=== PATIENT | female | born 1965 | race Caucasian/White ===

== ENCOUNTER → 2017-01-11 | Outpatient (CLI) | payer BC ==
--- NOTE | 2017-01-13 09:39 | KCIC ---
DATE: 01/11/2017 EXAM: MAMMO ROSITA SCREENING BILATERAL HISTORY: Routine screening COMPARISON: 01/16/2016 The breast parenchyma is heterogeneously dense, which could reduce sensitivity of mammography. Breast parenchyma level C. FINDINGS: 2-D and 3-D tomosynthesis imaging was performed in CC and MLO projections. There is a tiny 3 mm nodule located at approximately the 3:00 location in the left breast, best seen on CC tomogram #31 and oblique tomogram image #34. It is not clearly visualized on the current or old 2-D images due to overlying fibroglandular tissue. It is therefore not clear whether this is truly a new nodule. No other unusual breast densities are seen. Benign-appearing lymph node type densities are present in the axillary regions. A couple benign type calcifications are noted. No suspicious microcalcifications are seen. IMPRESSION: 1. Tiny breast left lateral breast nodule as described above. Sonographic evaluation is suggested. 2. Stable right mammograms. BI-RADS CATEGORY: 0 INCOMPLETE: NEEDS ADDITIONAL IMAGING EVALUATION AND/OR PRIOR MAMMOGRAMS FOR COMPARISON. RECOMMENDED FOLLOW-UP: ADD ADDITIONAL IMAGING PQRS compliance statement: Patient information was entered into a reminder system with a target due date for the next mammogram. Mammography is a sensitive method for finding small breast cancers, but it does not detect them all and is not a substitute for careful clinical examination. A negative mammogram does not negate a clinically suspicious finding and should not result in delay in biopsying a clinically suspicious abnormality. "Our facility is accredited by the [employer] Mammography Program."
== END | disposition home or self-care (01) ==
LOC: KCIC MAMMO 09:45
PROVIDERS: ATTEND Family Medicine
DX: Z12.31 Encounter for screening mammogram for malignant neoplasm of breast (principal)
CPT/HCPCS: 77063; G0202; 77067

== ENCOUNTER → 2017-01-26 | Outpatient (CLI) | payer BC ==
--- NOTE | 2017-01-26 13:33 | RAD ---
Left breast ultrasound [id number] Indication: Abnormal mammogram with mass in the upper outer left breast. Comparison: Prior mammograms from 01/11/2017, 01/16/2016 at 01/14/2015 Technique: Sonographic evaluation of the left breast was performed at the 3:30 position, 12:00, 1:00, 2:00, 3:00, 4:00, 5:00 and 6:00 position of the left breast 6 cm from the nipple. Findings: No suspicious medical stations, masses or areas of architectural distortion are identified in the left breast. There is a hyperechoic mass measuring 4 x 5 x 3 mm which does not correspond to the area of the circumscribed mass in the upper outer left breast on prior mammogram. This finding is favored to represent a lipoma. Since no mammographic correlate for circumscribed mass is identified, recommend follow-up mammogram and ultrasound in 6 months. Impression: Probably benign findings in the left breast. Recommend 6 month follow-up targeted ultrasound and mammogram for circumscribed mass in the upper outer left breast, 6 cm from the nipple. BI-RADS 3: Probably benign findings. Recommendations: Recommend 6 month follow-up imaging to include ultrasound and mammogram.
== END | disposition home or self-care (01) ==
LOC: KCIC US 12:18
PROVIDERS: ATTEND Family Medicine
DX: N63.20 Unspecified lump in the left breast, unspecified quadrant (principal); N63.21 Unspecified lump in the left breast, upper outer quadrant
CPT/HCPCS: 76641

== ENCOUNTER → 2017-07-27 | Outpatient (CLI) | payer BC | END | disposition home or self-care (01) | LOC: KCIC MAMMO 12:14 | DX: D48.62 Neoplasm of uncertain behavior of left breast (principal); N63.21 Unspecified lump in the left breast, upper outer quadrant | CPT/HCPCS: 76641; 77065; G0279 ==

== ENCOUNTER → 2018-01-27 | Outpatient (CLI) | payer BC ==
--- NOTE | 2018-01-27 14:53 | KCIC ---
DATE: 01/27/2018 EXAM: MAMMO ROSITA DIAG BILAT HISTORY: 6 month follow-up, previous breast nodule COMPARISON: 07/27/2017, 01/11/2017 This study was interpreted with the benefit of Computerized Aided Detection (CAD). Breast Density: HETERO The breast parenchyma is heterogenously dense, which could reduce sensitivity of mammography. Breast parenchyma level C. FINDINGS: 2-D and 3-D tomosynthesis imaging was performed in CC and MLO projections. No new or enlarging breast densities are seen. A tiny smooth nodule seen laterally in the left breast on the 01/11/2017 study is no longer visible. Benign type calcifications are present. No suspicious microcalcifications have developed. Left breast ultrasound, 01/27/2018: A targeted ultrasound exam of the left breast was obtained at the 3:30 location or a small hyperechoic nodule has been seen on previous studies. A 2 mm small hypermetabolic focus is again identified at this location, approximate 6 cm from the nipple. It is unchanged in size and configuration. A lipoma is most likely. IMPRESSION: 1. Stable mammograms without evidence of malignancy. 2. Unchanged tiny hyperechoic left breast nodule, likely a lipoma. 3. Follow-up left breast ultrasound in 6 months and bilateral mammography at one year is suggested. BI-RADS CATEGORY: 3 PROBABLY BENIGN FINDING(S)-SHORT INTERVAL FOLLOW-UP SUGGESTED RECOMMENDED FOLLOW-UP: 6M 6 MONTH FOLLOW-UP PQRS compliance statement: Patient information was entered into a reminder system with a target due date for the next mammogram. Mammography is a sensitive method for finding small breast cancers, but it does not detect them all and is not a substitute for careful clinical examination. A negative mammogram does not negate a clinically suspicious finding and should not result in delay in biopsying a clinically suspicious abnormality. "Our facility is accredited by the [employer] Mammography [employer]."
== END | disposition home or self-care (01) ==
LOC: KCIC MAMMO 12:48
PROVIDERS: ATTEND Family Medicine
DX: D48.62 Neoplasm of uncertain behavior of left breast (principal)
CPT/HCPCS: 76641; 77066; G0279; 77062

== ENCOUNTER → 2018-07-27 | Outpatient (CLI) | payer BC ==
--- NOTE | 2018-07-27 13:31 | KCIC ---
Left breast ultrasound: Reason for examination: Follow-up nodule. Comparison is made to previous studies dated 01/27/2018 and 07/27/2017. Ultrasound examination was performed in the area of previous concern and at the left axilla. In the 3:30 position 6 cm from the nipple, there continues to be hyperechoic lesion measuring approximately 4.4 mm in greatest dimension consistent with a lipoma. No other cystic or solid lesions are seen. No abnormal appearing lymph nodes are seen in the axilla. IMPRESSION: Hyperechoic lesion consistent with a lipoma at the 3:30 position. No suspicious abnormalities are seen. Recommend routine mammographic follow-up. BI-RADS Category 2: Benign. "Our facility is accredited by the [employer] Mammography [employer]." This patient's information has been entered into a reminder system for the patient to be notified with the results of her examination and a target date for the next mammogram. Electronically signed by: Nayeli Fernandez MD (07/27/2018 1:28 PM) [id number]
== END | disposition home or self-care (01) ==
LOC: KCIC US 12:51
PROVIDERS: ATTEND Family Medicine
DX: D49.3 Neoplasm of unspecified behavior of breast (principal)
CPT/HCPCS: 76641

== ENCOUNTER → 2019-01-19 | Outpatient (CLI) | payer BC ==
--- NOTE | 2019-01-21 09:00 | KCIC ---
BILATERAL SCREENING MAMMOGRAM, 3-D History: Routine screening. Comparison: Bilateral mammogram January 11, 2017. Technique: MLO and CC digital tomosynthesis (3D) images obtained. Radiologist reviewed these images on dedicated workstation. Findings: Breast Tissue Density C : The breasts are heterogeneously dense, which may obscure small masses. There are no dominant masses, suspicious microcalcifications, or architectural distortion. IMPRESSION: No mammographic evidence of malignancy. Recommend routine screening. BI-RADS category 1: Negative. The images were reviewed with computer-aided detection. Patient information is entered into reminder system with a target due date for the next screening mammogram. Mammography is the most sensitive method for finding small breast cancers, but it does not detect them all and is not a substitute for careful clinical examination. A negative mammogram does not negate a clinically suspicious finding and should not result in delay in biopsying a clinically suspicious abnormality. "Our facility is accredited by the [employer] Mammography [employer]." Electronically signed by: Carlos Hodge MD (01/21/2019 8:57 AM) [id number]
== END | disposition home or self-care (01) ==
LOC: KCIC MAMMO 15:33
PROVIDERS: ATTEND Family Medicine
DX: Z12.31 Encounter for screening mammogram for malignant neoplasm of breast (principal)
CPT/HCPCS: 77063; 77067

== ENCOUNTER → 2020-01-23 | Outpatient (CLI) | payer BC ==
--- NOTE | 2020-01-23 19:03 | KCIC ---
Bilateral digital screening mammograms with 3-D tomosynthesis: Reason for examination: Routine screening. Comparison is made to previous studies dated back to 01/16/2016. Bilateral mammograms in CC and oblique projections were obtained with 2-D imaging and 3-D tomosynthesis imaging on a Siemens Inspiration unit and reviewed on the workstation. Interpretation was made with the benefit of CAD. The skin and nipples show no abnormalities. No abnormal axillary lymph nodes are seen. The breast parenchyma is extremely dense. (Breast density: Category D.) There are no dominant masses, suspicious calcifications or architectural distortion. Impression: No evidence of malignancy. Recommend routine screening. Your patient's mammogram demonstrates that she has dense breast tissue (breast density category C or D), which could hide abnormalities, and if she has other risk factors for breast cancer that have been identified, she might benefit from supplemental screening tests that may be suggested by you as her ordering physician. Dense breast tissue, in and of itself, is a relatively common condition. Therefore, this information is not provided to cause undue concern, but rather to raise your awareness and to promote discussion with your patient regarding the presence of other risk factors, in addition to dense breast tissue. Your patient's mammography results will be sent to her. BI-RAD Category 1: Negative. "Our facility is accredited by the [employer] Mammography Program." This patient's information has been entered into a reminder system for the patient to be notified with the results of her examination and a target date for the next mammogram. Electronically signed by: Nayeli Fernandez MD (01/23/2020 7:01 PM) [id number]
--- NOTE | 2020-01-24 09:32 | KCIC ---
EXAM: Dual energy x-ray absorptiometry (DEXA). HISTORY: Estrogen deficiency. COMPARISON: None available. TECHNIQUE: Dual energy x-ray absorptiometry of the lumbar spine and left hip was performed. Calculation of bone mineral density based on standard deviations above or below the expected young adult normal value (T-score) was completed. FINDINGS: The average bone mineral density in the 1st through 4th lumbar vertebrae is 0.897 g/cmxcm, corresponding with a T-score of -1.4. The average total bone mineral density in the left hip is 0.982 g/cmxcm, corresponding with a T-score of 0.3. IMPRESSION: Findings are within the range of osteopenia with relation to the spine and normal bone density with relation of the hip. Note: Definitions established by the World Health Organization: 1. Normal: T-score is -1.0 or above. 2. Osteopenia: T-score is between -1.0 and -2.5 . 3. Osteoporosis: T-score is -2.5 or below. Electronically signed by: Heidy Martinez MD (01/24/2020 9:29 AM) [id number]
== END ==
LOC: KCIC MAMMO 14:45
PROVIDERS: ATTEND Nurse Practitioner Family
DX: Z12.31 Encounter for screening mammogram for malignant neoplasm of breast (principal); M85.88 Other specified disorders of bone density and structure, other site; E28.0 Estrogen excess
CPT/HCPCS: 77063; 77067; 77080

== ENCOUNTER → 2021-02-13 | Outpatient (CLI) | payer BC, OTHER ==
--- NOTE | 2021-02-13 11:49 | KCIC ---
Bilateral digital screening mammograms with 3-D tomosynthesis: Reason for examination: Routine screening. Comparison is made to previous studies dated back to 01/16/2016. Bilateral mammograms in CC and oblique projections were obtained with 2-D imaging and 3-D tomosynthes is imaging on a Siemens Inspiration unit and reviewed on the workstation. Interpretation was made wit h the benefit of CAD. The skin and nipples show no abnormalities. No abnormal axillary lymph nodes are seen. The breast par enchyma is heterogeneously dense. (Breast density: Category C.) There are no dominant masses, suspici ous calcifications or architectural distortion. Impression: No evidence of malignancy. Recommend routine screening. Your patient's mammogram demonstrates that she has dense breast tissue (breast density category C or D), which could hide abnormalities, and if she has other risk factors for breast cancer that have bee n identified, she might benefit from supplemental screening tests that may be suggested by you as her ordering physician. Dense breast tissue, in and of itself, is a relatively common condition. Therefo re, this information is not provided to cause undue concern, but rather to raise your awareness and t o promote discussion with your patient regarding the presence of other risk factors, in addition to d ense breast tissue. Your patient's mammography results will be sent to her. BI-RAD Category 1: Negative. "Our facility is accredited by the [employer] Mammography Program." This patient's information has been entered into a reminder system for the patient to be notified wit h the results of her examination and a target date for the next mammogram. Electronically signed by: Nayeli Fernandez MD (02/13/2021 11:46 AM) [email or web address]
== END ==
LOC: KCIC MAMMO 09:07
PROVIDERS: ATTEND Student in an Organized Health Care Education/Training Program
DX: Z12.31 Encounter for screening mammogram for malignant neoplasm of breast (principal)
CPT/HCPCS: 77063; 77067